=== PATIENT | male | born 1960 | race Caucasian/White ===

== ENCOUNTER 2021-11-17 07:27 | Day surgery (SDC) | payer OTHER ==
[~2021-11-17] VITALS: Ht 177.8 cm; Wt 119.1 kg
[2021-11-17] VITALS (148 sets, daily range): BP systolic 81–166; BP diastolic 36–98
[2021-11-17 07:53] LABS: HEMATOCRIT 54.5 % (39.0-50.0); HEMOGLOBIN 17.1 g/dl (14.0-18.0); IMMATURE GRANULOCYTES 0.3 % (0.0-5.0); MEAN CELL VOLUME 97.1 fL CALC (80.0-100.0); MEAN CORPUSCULAR HGB 30.5 pG CALC (26.0-32.0); MEAN CORPUSCULAR HGB CONC 31.4 g/dL CAL (32.0-36.0); NEUT# 5.48 thou/uL (1.82-7.42); RED BLOOD COUNT 5.61 mill/uL (4.70-6.10); RED CELL DISTRI WIDTH 12.1 % (11.5-15.5)
[2021-11-17 08:19] LABS: ALBUMIN 4.2 g/dL (3.2-5.0); ALKALINE PHOSPHATASE 54 u/l (38-126); ANION GAP 12 (6-22 (CALC)); BILIRUBIN, TOTAL 0.8 mg/dL (0.0-1.4); BUN 19 mg/dL (8-23); BUN/CREATININE RATIO 19 (12-20 (CALC)); CARBON DIOXIDE 31 mmol/l (22-30); CHLORIDE 103 mmol/l (95-108); GFR > 60 ML/MIN (>=60 (CALC)); GFR FOR AFR.AMER. > 60 ML/MIN (>=60 (CALC)); SGOT/AST 45 u/l (19-48); SODIUM 142 mmol/l (137-146); TOTAL PROTEIN 7.6 g/dL (6.3-8.2)
[2021-11-17] MEDS ORDERED: METOPROL TAR100 MG PO (09:57)
[2021-11-17] MEDS ORDERED: AMLODIPINE BESYL5 MG PO (09:57)
[2021-11-17] MEDS ORDERED: ATORVASTATIN CA20 MG PO (09:57)
[2021-11-18 03:31] VITALS: BP 141/76
[2021-11-18 05:19] LABS: HEMATOCRIT 57.5 % (39.0-50.0); HEMOGLOBIN 18.5 g/dl (14.0-18.0); IMMATURE GRANULOCYTES 0.2 % (0.0-5.0); MEAN CELL VOLUME 94.7 fL CALC (80.0-100.0); MEAN CORPUSCULAR HGB 30.5 pG CALC (26.0-32.0); MEAN CORPUSCULAR HGB CONC 32.2 g/dL CAL (32.0-36.0); NEUT# 8.71 thou/uL (1.82-7.42); RED BLOOD COUNT 6.07 mill/uL (4.70-6.10)
[2021-11-18 05:56] LABS: ALBUMIN 4.5 g/dL (3.2-5.0); ALKALINE PHOSPHATASE 60 u/l (38-126); ANION GAP 11 (6-22 (CALC)); BILIRUBIN, TOTAL 1.1 mg/dL (0.0-1.4); BUN 12 mg/dL (8-23); BUN/CREATININE RATIO 15 (12-20 (CALC)); CARBON DIOXIDE 30 mmol/l (22-30); CHLORIDE 102 mmol/l (95-108); CREATININE 0.8 mg/dL (0.7-1.3); GFR > 60 ML/MIN (>=60 (CALC)); GFR FOR AFR.AMER. > 60 ML/MIN (>=60 (CALC)); MAGNESIUM 2.3 mg/dL (1.6-2.3); POTASSIUM 4.2 mmol/l (3.5-5.1); SGOT/AST 38 u/l (19-48); SODIUM 139 mmol/l (137-146); TOTAL PROTEIN 7.9 g/dL (6.3-8.2)
[2021-11-18 07:37] VITALS: BP 120/56
[2021-11-18 12:09] VITALS: BP 129/64
[2021-11-18 14:15] VITALS: BP 108/58
== END 2021-11-18 15:25 | disposition home or self-care (01) | DRG 897 ==
LOC: ANR 07:27 → MS2 07:31 → ANR 10:02
PROVIDERS: ATTEND Anesthesiology
DX: F11.20 Opioid dependence, uncomplicated (principal)
CPT/HCPCS: J0131; J2060; J2354; J3475